=== PATIENT | female | born 1975 | race Caucasian/White ===

== ENCOUNTER → 2018-06-07 | Outpatient (CLI) | payer MEDICAID ==
[2014-01-27 21:55] VITALS: BP 134/80
== END ==
LOC: RAD 11:53
DX: M47.896 Other spondylosis, lumbar region (principal)

== ENCOUNTER → 2021-01-08 | Outpatient (CLI) | payer MEDICAID | LOC: RAD 09:36 | DX: M25.552 Pain in left hip (principal); W19.XXXA Unspecified fall, initial encounter ==

== ENCOUNTER → 2021-01-29 | Outpatient (CLI) | payer MEDICAID | LOC: RAD 18:15 | DX: M51.36 Other intervertebral disc degeneration, lumbar region (principal); M47.816 Spondylosis without myelopathy or radiculopathy, lumbar region ==

== ENCOUNTER 2021-12-15 14:08 | Emergency (ER) | payer MEDICAID ==
[2021-12-15 14:32] LABS: BASO # 0.05 K/mm3 (0.02-0.10); EOS # 0.28 K/mm3 (0.04-0.40); EOS % 2.9 % (1.0-5.0); HEMATOCRIT 41.5 % (37.0-47.0); HEMOGLOBIN 14.2 g/dL (12.5-16.0); LYMPH# 3.83 K/mm3 (1.50-4.00); MEAN CELL VOLUME 102 fl (78-100); MEAN CORPUSCULAR HEMOGLOBIN 35 pg (27-31); MEAN CORPUSCULAR HGB CONC 34 g/dL (33-37); MEAN PLATELET VOLUME 9.8 fl (7.4-10.4); MONO # 0.36 K/mm3 (0.20-0.80); NEU # 5.28 K/mm3 (1.40-6.50); PLATELET COUNT 235 K/mm3 (130-400); RED BLOOD COUNT 4.08 M/mm3 (4.10-5.30); RED CELL DISTRIBUTION WIDTH 12.1 % (11.5-14.5); WHITE BLOOD COUNT 9.8 K/mm3 (4.8-10.8)
[2021-12-15 14:48] LABS: ALBUMIN 3.8 g/dL (3.5-5.0)
[2021-12-15 14:49] LABS: SODIUM 145 mmol/L (136-145)
[2021-12-15 14:50] LABS: CALCIUM 8.5 mg/dL (8.3-10.5)
[2021-12-15 14:51] LABS: GLUCOSE 95 mg/dL (65-105)
[2021-12-15 14:52] LABS: CARBON DIOXIDE 22 mmol/L (22-29)
[2021-12-15 14:53] LABS: TOTAL BILIRUBIN 0.3 mg/dL (0.2-1.2)
[2021-12-15 14:54] LABS: ALCOHOL IN-HOUSE 280 mg/dL (<10)
[2021-12-15 14:56] LABS: AST-SGOT 72 U/L (5-34)
[2021-12-15 14:58] LABS: ALT/SGPT 61 U/L (0-55)
[2021-12-15 15:18] LABS: ACETAMINOPHEN < 1 ug/mL
[2021-12-15 17:28] VITALS: BP 125/82
== END 2021-12-15 17:10 | disposition home or self-care (01) ==
LOC: ED 14:08
PROVIDERS: Physician Assistant
DX: F10.10 Alcohol abuse, uncomplicated (principal); F17.200 Nicotine dependence, unspecified, uncomplicated; Z28.310 Unvaccinated for COVID-19
CPT/HCPCS: J7030

== ENCOUNTER 2022-03-23 01:26 | Emergency (ER) | payer MEDICAID ==
[~2022-03-23] VITALS: Ht 160 cm; Wt 95.0 kg
[2022-03-23 02:08] LABS: URINE WBC 0 /hpf (0-3)
[2022-03-23 02:11] LABS: BASO # 0.04 K/mm3 (0.02-0.10); EOS # 0.16 K/mm3 (0.04-0.40); EOS % 1.4 % (1.0-5.0); HEMATOCRIT 49.8 % (37.0-47.0); HEMOGLOBIN 16.7 g/dL (12.5-16.0); LYMPH# 4.85 K/mm3 (1.50-4.00); MEAN CELL VOLUME 100 fl (78-100); MEAN CORPUSCULAR HEMOGLOBIN 34 pg (27-31); MEAN CORPUSCULAR HGB CONC 34 g/dL (33-37); MEAN PLATELET VOLUME 10.2 fl (7.4-10.4); MONO # 0.31 K/mm3 (0.20-0.80); NEU # 5.72 K/mm3 (1.40-6.50); PLATELET COUNT 225 K/mm3 (130-400); RED BLOOD COUNT 4.98 M/mm3 (4.10-5.30); RED CELL DISTRIBUTION WIDTH 12.3 % (11.5-14.5); WHITE BLOOD COUNT 11.1 K/mm3 (4.8-10.8)
[2022-03-23 02:18] VITALS: BP 99/63
[2022-03-23 02:26] LABS: ALBUMIN 4.5 g/dL (3.5-5.0); POTASSIUM 4.8 mmol/L (3.5-5.1); SODIUM 144 mmol/L (136-145)
[2022-03-23 02:27] LABS: CALCIUM 9.6 mg/dL (8.3-10.5)
[2022-03-23 02:28] LABS: GLUCOSE 92 mg/dL (65-105)
[2022-03-23 02:29] LABS: CARBON DIOXIDE 27 mmol/L (22-29); TOTAL PROTEIN 7.6 g/dL (6.4-8.3)
[2022-03-23 02:30] LABS: TOTAL BILIRUBIN 0.4 mg/dL (0.2-1.2)
[2022-03-23 02:31] LABS: ALCOHOL IN-HOUSE 298 mg/dL (<10)
[2022-03-23 02:34] LABS: AST-SGOT 186 U/L (5-34)
[2022-03-23 02:34] LABS: URINE APPEARANCE CLEAR; URINE COLOR YELLOW
[2022-03-23 02:35] LABS: URINE BILIRUBIN NEGATIVE (NEGATIVE); URINE BLOOD NEGATIVE (NEGATIVE); URINE GLUCOSE NEGATIVE (NEGATIVE); URINE KETONE NEGATIVE (NEGATIVE); URINE LEUKOCYTE ESTERASE NEGATIVE (NEGATIVE); URINE NITRATE NEGATIVE (NEGATIVE); URINE PROTEIN(semi-quant) TRACE (NEGATIVE); URINE UROBILINOGEN NORMAL (NORMAL)
[2022-03-23 02:35] LABS: ALT/SGPT 134 U/L (0-55)
[2022-03-23 02:38] LABS: ACETAMINOPHEN < 1 ug/mL
[2022-03-23 04:23] LABS: PROTHROMBIN TIME 10.1 SECONDS (9.0-12.0)
== END 2022-03-23 02:30 | disposition left against medical advice (07) ==
LOC: ED 01:26
PROVIDERS: Nurse Practitioner
DX: F10.10 Alcohol abuse, uncomplicated (principal); Z20.822 Contact with and (suspected) exposure to COVID-19; Z28.310 Unvaccinated for COVID-19